=== PATIENT | male | born 1970 | race Caucasian/White ===

== ENCOUNTER → 2025-06-17 10:05 | Outpatient (CLI) | payer OTHER, SELFPAY ==
--- NOTE | 2025-06-17 10:07 | DI.RAD.S_ITS ---
PROCEDURE: XR TOE RT MIN 2V INDICATIONS: Toe X TECHNIQUE: Three views, 5th toe COMPARISON: None. FINDINGS: Bones: No fractures or dislocations. No suspicious bony lesions. Soft tissues: No suspicious soft tissue densities. IMPRESSION: No acute bony abnormality. Approved by: Baltazar Hendrix M.D. on 06/17/2025 at 9:47
== END ==
LOC: RAD 10:07
PROVIDERS: Referring Provider Nurse Practitioner Family; Visit Provider Nurse Practitioner Family
DX: S90.121A Contusion of right lesser toe(s) without damage to nail, initial encounter (principal); W22.09XA Striking against other stationary object, initial encounter
CPT/HCPCS: 73660